=== PATIENT | female | born 1965 | race Caucasian/White ===

== ENCOUNTER → 2017-12-24 00:40 | Outpatient (CLI) | payer OTHER, SELFPAY ==
[2017-12-24 11:03] LABS: Anion Gap 9.5 mmol/L (3-11); BUN 16 mg/dL (7-18); CO2 25.5 mmol/L (21.0-32.0); CREATININE 0.81 mg/dL (0.55-1.02); Calcium 8.1 mg/dL (8.5-10.1); Chloride 107 mmol/L (98-107); Cholesterol 174 mg/dL (50-200); Glucose 102 mg/dL (70-100); HDL Cholesterol 36 mg/dL (40-60); LDL CHOLESTEROL 116 mg/dL (<100); Potassium 4.6 mmol/L (3.5-5.1); Sodium 142 mmol/L (136-145); Triglyceride 167 mg/dL (30-150)
== END ==
PROVIDERS: PCP Family Medicine; Visit Provider Family Medicine
DX: Z00.00 Encounter for general adult medical examination without abnormal findings (principal); Z13.228 Encounter for screening for other metabolic disorders; Z13.220 Encounter for screening for lipoid disorders
CPT/HCPCS: 36415; 80048; 80061; 83721

== ENCOUNTER 2019-08-06 10:53 | Outpatient (REF) | payer OTHER, SELFPAY ==
[2019-08-06 12:53] LABS: Hemoglobin A1C 6.2 % (3.8-5.6)
== END 2019-08-06 11:13 ==
LOC: NCHCN 10:53
PROVIDERS: PCP Family Medicine; Visit Provider Family Medicine
DX: R73.03 Prediabetes (principal)
CPT/HCPCS: 83036

== ENCOUNTER 2019-11-29 17:28 | Outpatient (REF) | payer OTHER, SELFPAY ==
[2019-11-29 17:21] LABS: Bilirubin Negative (Negative); Blood Large (Negative); Clarity Sl Cloudy (Clear); Glucose Negative (Negative); Ketones Negative (Negative); Leukocyte Esterase Negative (Negative); Nitrite Negative (Negative); Urobilinogen 0.2 EU/dL (Up TO 0.2)
[2019-11-29 17:33] LABS: Bacteria Negative HPF (Negative); C & S Indicated? No; Casts Negative LPF (Negative); Crystals Negative HPF (Negative); Epithelial Cells Negative HPF (Negative); Mucus Negative (Negative); Other Cells Negative (Negative); RBC >50 HPF (0-2)
== END 2019-11-29 17:48 ==
LOC: LBO 17:28
PROVIDERS: PCP Family Medicine; Visit Provider Family Medicine
DX: R31.9 Hematuria, unspecified (principal)
CPT/HCPCS: 81003; 81015

== ENCOUNTER 2019-12-03 13:53 | Outpatient (REF) | payer OTHER, SELFPAY ==
[2019-12-03 17:39] LABS: HCT 44.6 % (36.0-46.0); HGB 14.8 g/dL (12.0-15.5); Mean Corp. HGB Concentration 33.2 g/dL (32.0-36.0); Mean Corpuscular Hemoglobin 29.4 pg (27.0-33.0); Mean Corpuscular Volume 88.7 fL (80-95); Mean Platelet Volume 12.7 fL (8.0-11.0); Platelet Count 181 x1000/uL (130-400); RBC 5.03 m/cumm (4.00-5.20); White Blood Cell Count 6.08 k/cumm (4.4-10.8)
[2019-12-03 17:44] LABS: Bilirubin Negative (Negative); Blood Negative (Negative); Clarity Clear (Clear); Glucose Negative (Negative); Ketones Negative (Negative); Leukocyte Esterase Negative (Negative); Nitrite Negative (Negative); Specific Gravity 1.025 (1.005-1.025); Urobilinogen 0.2 EU/dL (Up TO 0.2); pH 5.5 (5-8)
[2019-12-03 18:16] LABS: ALT 64 U/L (14-59); AST 38 U/L (15-37); Albumin 3.9 g/dL (3.4-5.0); Alkaline Phosphatase 143 U/L (46-116); Anion Gap 9.2 mmol/L (3-11); BUN 14 mg/dL (7-18); Bilirubin, Total 0.7 mg/dL (0.2-1.0); CO2 25.8 mmol/L (21.0-32.0); CREATININE 0.93 mg/dL (0.55-1.02); Calcium 8.4 mg/dL (8.5-10.1); Chloride 105 mmol/L (98-107); Glucose 110 mg/dL (74-106); Potassium 4.7 mmol/L (3.5-5.1); Sodium 140 mmol/L (136-145); TSH (W/Ref FT4) 2.67 uIU/mL (0.36-3.74)
== END 2019-12-03 14:13 ==
LOC: NCHCN 13:53
PROVIDERS: PCP Family Medicine; Visit Provider Family Medicine
DX: R31.9 Hematuria, unspecified (principal); R94.6 Abnormal results of thyroid function studies
CPT/HCPCS: 80053; 85027; 81003; 84443

== ENCOUNTER 2019-12-07 07:52 | Outpatient (CLI) | payer OTHER, SELFPAY ==
--- NOTE | 2019-12-07 09:49 | DI.US_ITS ---
EXAM: US RENAL CLINICAL HISTORY: HEMATURIA, R31.9 TECHNIQUE: Ultrasound performed using standard protocol. COMPARISON: No exams were available for comparison FINDINGS: Kidneys are normal in size and shape. There is no evidence of a renal mass or hydronephrosis. There are a couple of echogenic foci seen in each kidney, these may represent renal calcifications bu t the findings are not confirmatory. No evidence of obstruction. Ureteral jets are noted bilaterall y in the urinary bladder. Urinary bladder is unremarkable in appearance with pre and postvoid urinary bladder volume measuremen ts 149 cc and 0 cc respectively. IMPRESSION: No evidence of urinary tract obstruction. Possible bilateral renal calculi. In the presence of emilia turia, additional evaluation with CT urogram may be considered. DATA REPOSITORY:
== END 2019-12-07 08:12 ==
PROVIDERS: PCP Family Medicine; Visit Provider Family Medicine
DX: R31.9 Hematuria, unspecified (principal)
CPT/HCPCS: 76770

== ENCOUNTER 2019-12-24 12:28 | Outpatient (REF) | payer OTHER, SELFPAY ==
--- NOTE | 2019-12-24 11:50 | PAPNONF_PTH ---
PATIENT: Nupur Mcallister LOC: LOAN U#:[id number] AGE/SX: 54/F ROOM: RE12/24/[address]: Katia Madison DNP : 1965 BED: DIS: 12/24/2019 SPEC #: [id number] RECD: 12/24/19 16:24 STATUS: EDUARD REAdia #: [id number] MARIVEL: 12/24/19 11:[address]: Katia Madison DEPT: [facility] Cytology RECD BY: Ira Farnsworth ENTERED: 12/24/19 16:24 SP TYPE: MARIA VICTORIA GOMEZ DR: Beckie Acosta Tissues: 1 - BODY FLUID CYTO(SPUTUM/URINE)[facility] Procedures: BODY FLUID CYTO(URINE/SPUTUM) Comments: [id number] (TOTAL VOLUME = 60 ml's) (30 ml's URINE & 30 ml's CYTOLYT ADDED IN 2 CONTAINERS)
== END 2019-12-24 12:48 ==
LOC: LBN 12:28
PROVIDERS: PCP Family Medicine; Visit Provider Nurse Practitioner Gerontology
DX: R31.0 Gross hematuria (principal)
CPT/HCPCS: 88104

== ENCOUNTER 2020-01-04 02:23 | Outpatient (CLI) | payer OTHER, SELFPAY ==
--- NOTE | 2020-01-04 | DI.MAMMO_ITS ---
EXAM: MG MAMMO SCREENING CLINICAL HISTORY: SCREENING, [facility],Z00.00 TECHNIQUE: Bilateral full field digital CC and MLO mammographic images were obtained with 3D tomosyn thesis and utilizing computer aided detection (CAD). COMPARISON: Available for comparison. FINDINGS: Masses/Architectural Distortion: None seen. Microcalcifications: No suspicious pleomorphic-type are seen. Skin Thickening/Nipple Retraction: None. IMPRESSION: 1. No significant interval change with no specific features of malignancy noted. 2. Unless there is more urgent need, screening mammography is recommended, as per [employer] guidelines. BI-RADS Category 1 - Negative Breast Density - Category A - Almost entirely fatty A negative radiographic report should not delay biopsy if a dominant or clinically suspicious mass is present. Up to ten percent of cancers are not identified on mammography. A negative report may reinforce clinical impression. Adenosis and dense breasts may obscure an underlying neoplasm. False positive reports average 6 to 10%. Patient will receive a letter notifying them of these results.
== END 2020-01-04 02:43 ==
PROVIDERS: PCP Family Medicine; Visit Provider Family Medicine
DX: Z12.31 Encounter for screening mammogram for malignant neoplasm of breast (principal); Z00.00 Encounter for general adult medical examination without abnormal findings
CPT/HCPCS: 77063; 77067

== ENCOUNTER 2020-02-05 10:30 | Outpatient (REF) | payer OTHER, SELFPAY ==
[2020-02-05 19:17] LABS: ALT 59 U/L (14-59); AST 32 U/L (15-37); Albumin 3.7 g/dL (3.4-5.0); Alkaline Phosphatase 158 U/L (46-116); Bilirubin, Direct 0.08 mg/dL (0.00-0.20); Bilirubin, Total 0.4 mg/dL (0.2-1.0); Glucose 111 mg/dL (74-106); Total Protein 6.8 g/dL (6.4-8.2)
[2020-02-05 19:30] LABS: Hemoglobin A1C 5.7 % (<5.7)
[2020-02-05 19:37] LABS: Iron 51 ug/dL (50-170); Total Iron Binding Capacity 332 ug/dL (250-450); Transferrin Sat 15 % (15-50)
[2020-02-05 19:52] LABS: Ferritin 126 ng/mL (8-252)
[2020-02-07 10:05] LABS: Hepatitis A Antibody IgM Negative (Negative); Hepatitis B Core Antibody Negative (Negative); Hepatitis B surface Ag Negative (Negative); Hepatitis C Ab w Rflx HCV PCR Negative (Negative)
== END 2020-02-05 10:50 ==
LOC: NCHCN 10:30
PROVIDERS: PCP Family Medicine; Visit Provider Family Medicine
DX: R73.03 Prediabetes (principal); R79.89 Other specified abnormal findings of blood chemistry
CPT/HCPCS: 80076; 82947; 86704; 86709; 86803; 87340; 82728; 83036; 83540; 83550; 84443

== ENCOUNTER 2020-08-11 14:22 | Outpatient (REF) | payer OTHER, SELFPAY ==
[2020-08-11 18:58] LABS: Bilirubin Negative (Negative); Blood Negative (Negative); Clarity Clear (Clear); Glucose Negative (Negative); Ketones Negative (Negative); Leukocyte Esterase Negative (Negative); Nitrite Negative (Negative); Specific Gravity 1.025 (1.005-1.025); Urobilinogen 0.2 EU/dL (Up TO 0.2); pH 5.5 (5-8)
[2020-08-11 19:11] LABS: Hemoglobin A1C 6.3 % (<5.7)
[2020-08-11 19:28] LABS: ALT 53 U/L (14-59); AST 27 U/L (15-37); Albumin 3.7 g/dL (3.4-5.0); Alkaline Phosphatase 175 U/L (46-116); Anion Gap 9.5 mmol/L (3-11); BUN 18 mg/dL (7-18); Bilirubin, Total 0.4 mg/dL (0.2-1.0); CO2 25.5 mmol/L (21.0-32.0); CREATININE 0.9 mg/dL (0.55-1.02); Calcium 8.1 mg/dL (8.5-10.1); Chloride 105 mmol/L (98-107); Glucose 109 mg/dL (74-106); Potassium 4.4 mmol/L (3.5-5.1); Sodium 140 mmol/L (136-145); Total Protein 6.7 g/dL (6.4-8.2)
[2020-08-13 10:30] LABS: HIV-1/2 Ag & Ab Screen Negative (Negative)
[2020-08-15 17:19] LABS: Magnesium 1.9 mg/dL (1.8-2.4)
[2020-08-17 17:35] LABS: Vitamin D 25 Total 11.8 ng/mL (30-100)
== END 2020-08-11 14:23 | disposition home or self-care (01) ==
LOC: NCHCN 14:22
PROVIDERS: PCP Family Medicine; Visit Provider Family Medicine
DX: Z00.00 Encounter for general adult medical examination without abnormal findings (principal); R73.03 Prediabetes; R74.8 Abnormal levels of other serum enzymes; R31.9 Hematuria, unspecified; Z11.4 Encounter for screening for human immunodeficiency virus [HIV]
CPT/HCPCS: 80053; 82306; 87389; 81003; 83036; 83735

== ENCOUNTER 2020-10-14 16:02 | Outpatient (REF) | payer OTHER, SELFPAY ==
[2020-10-14 16:50] LABS: Folate 10.1 ng/mL (8.6-20.0); Vitamin B12 461 pg/mL (193-986)
[2020-10-15 12:12] LABS: Albumin 62.6 % (55.8-66.1); Total Protein 6.6 g/dL (6.3-8.2)
== END 2020-10-14 16:03 | disposition home or self-care (01) ==
LOC: NCHCN 16:02
PROVIDERS: PCP Family Medicine; Visit Provider Family Medicine
DX: R20.2 Paresthesia of skin (principal)
CPT/HCPCS: 82607; 82746; 84165

== ENCOUNTER 2020-10-27 18:39 | Outpatient (REF) | payer OTHER, SELFPAY ==
[2020-10-27 18:59] LABS: Calcium 8.4 mg/dL (8.5-10.1)
[2020-10-27 19:16] LABS: PHOSPHORUS 3.8 mg/dL (2.6-4.7)
[2020-10-29 10:52] LABS: Parathyroid Hormone,Intact 78 pg/mL (19-88)
== END 2020-10-27 18:40 | disposition home or self-care (01) ==
LOC: NCHCN 18:39
PROVIDERS: PCP Family Medicine; Visit Provider Family Medicine
DX: E58 Dietary calcium deficiency (principal); R73.03 Prediabetes
CPT/HCPCS: 82310; 82330; 83970; 84100

== ENCOUNTER 2021-01-27 14:36 | Outpatient (REF) | payer OTHER, SELFPAY ==
[2021-01-27 19:20] LABS: Calcium 8.4 mg/dL (8.5-10.1); TSH (W/Ref FT4) 3.16 uIU/mL (0.36-3.74)
[2021-01-28 11:03] LABS: Glucose 99 mg/dL (74-106)
[2021-01-29 01:30] LABS: Vitamin D 25 Total 34.4 ng/mL (30-100)
== END 2021-01-27 14:37 | disposition home or self-care (01) ==
LOC: NCHCN 14:36
PROVIDERS: PCP Family Medicine; Visit Provider Family Medicine
DX: R73.03 Prediabetes (principal); E83.51 Hypocalcemia; E55.9 Vitamin D deficiency, unspecified
CPT/HCPCS: 82306; 82947; 82310; 84443

== ENCOUNTER 2021-02-03 02:07 | Outpatient (CLI) | payer OTHER, SELFPAY ==
[2021-02-03 08:29] LABS: Hemoglobin A1C 5.8 % (<5.7)
[2021-02-03 15:59] LABS: Ionized Calcium 1.05 mmol/L (1.12-1.32)
[2021-02-04 10:14] LABS: Parathyroid Hormone,Intact 51 pg/mL (19-88)
== END 2021-02-03 02:08 | disposition home or self-care (01) ==
LOC: LBO 02:07
PROVIDERS: PCP Family Medicine; Visit Provider Family Medicine
DX: E83.51 Hypocalcemia (principal); R20.9 Unspecified disturbances of skin sensation; R73.03 Prediabetes
CPT/HCPCS: 36415; 82330; 83036; 83970

== ENCOUNTER 2021-07-14 02:38 | Outpatient (CLI) | payer OTHER, SELFPAY ==
--- NOTE | 2021-07-14 17:30 | DI.DEXA_ITS ---
Exam(s) XR DEXA BONE DENSITY W/WO REJI EXAM: XR DEXA BONE DENSITY W/WO REJI CLINICAL HISTORY: MENOPAUSE, Z78.0; VITAMIN D DEFICIENCY WITH HYPOCALCEMIA, HYPERPTH, E55.9 TECHNIQUE: [employer] Horizon C densitometer COMPARISON: No exams were available for comparison FINDINGS: Lateral view of the thoracic and lumbar spine shows no evidence of compression fractures. Bone mineral density measurements of the lumbar spine correspond to a total T-score of 0.0, in the n ormal range. Bone mineral density measurements of the left hip correspond to a total T-score of 0.3. The femoral neck T-score is -1.0, at the lower range of normal. . The left forearm bone mineral density measurements correspond to a T-score of the distal 3rd of -0 p oint, in the normal range.. IMPRESSION: Normal bone mineral density.
== END 2021-07-14 02:58 ==
PROVIDERS: PCP Family Medicine; Visit Provider Internal Medicine Endocrinology, Diabetes & Metabolism
DX: Z13.820 Encounter for screening for osteoporosis (principal); Z78.0 Asymptomatic menopausal state; E55.9 Vitamin D deficiency, unspecified
CPT/HCPCS: 77080

== ENCOUNTER 2021-08-04 00:45 | Outpatient (CLI) | payer OTHER, SELFPAY ==
--- NOTE | 2021-08-04 07:38 | DI.US_ITS ---
APPROVED REPORT EXAM: Comprehensive 2D, Doppler, and color-flow Echocardiogram Patient Location: Out-Patient Angle Furnaceman: Yael Winchester RDCS (AE) Indications: Dyspnea on exertion Other Information Study Quality: Adequate Conclusion Normal left ventricular wall thickness and chamber size. Estimated ejection fraction is 60%. Wall m otion is normal Normal right ventricular size and systolic function Both atria are normal in size The aortic valve is trileaflet and mildly sclerotic without stenosis or regurgitation No additional structural or hemodynamically significant valvular disease Estimated right ventricular systolic pressure is normal at 18 mmHg Wall motion Left Ventricle The left ventricle is normal size. The left ventricular systolic function is normal. The left ventric ular ejection fraction is within the normal range. There is normal left ventricular wall thickness. T here is normal LV segmental wall motion. There is no ventricular septal defect visualized. LVEF is 60 %. Right Ventricle The right ventricle is normal size. The right ventricular systolic function is normal. The RVSP is 17 .7 mmHg. Atria The left atrium size is normal. The right atrium size is normal. The interatrial septum is intact wit h no evidence for an atrial septal defect. Aortic Valve The aortic valve is mildly sclerotic Aortic valve is trileaflet. There is no aortic valvular stenosis . No aortic regurgitation is present. Mitral Valve The mitral valve is normal in structure. No evidence of mitral valve stenosis. Trace mitral regurgita tion. Tricuspid Valve The tricuspid valve is normal in structure. There is no tricuspid valve stenosis. Trace tricuspid reg urgitation. Pulmonic Valve The pulmonary valve is normal in structure. There is no pulmonic valvular stenosis. Trace pulmonic re gurgitation. Great Vessels The aortic root is normal in size. The ascending aorta is normal in size. Aortic arch is not well vis ualized. IVC is normal in size and collapses >50% with inspiration. Pericardium There is no pericardial effusion. 2D Dimensions IVSD d PLAX 0.98 cm F: 0.6-1.0 LV Vol A2C d MOD 111.8 mL LVPW d PLAX 0.98 cm F: 0.6 - 1.0 LV Vol A4C d MOD 127.2 mL LVID d PLAX 4.98 cm F: 3.8 - 5.2 LA vol/ BSA A2C s A-L 31.6 mL/m2 LVDs 3.20 cm F: 2.2 - 3.5 LA vol/ BSA A4C s A-L 34.9 mL/m2 Ao Root d 2.80 cm F: 2.7 - 3.3 LA Vol/ BSA Biplane s A-L 35.5 mL/m2 RA Area A4C 13.38 cm2 LA Area A4C s MOD 22.21 cm2 RA Vol/ BSA A4C s A-L 16.1 mL/m2 LA Area A2C s MOD 19.77 cm2 Ao Asc Diam d 3.03 cm F: 2.3 - 3.1 LV EF A4C MOD 59.6 % LV EF Teichholz 64.5 % LV EF A2C MOD 59.4 % LVEF (Pacheco's) 58.26 % F: 54 - 74 LV EF Biplane MOD 58.3 % LV Volume 88.45 mL F: 46 - 106 SV 69.92 mL LV Volume Index 41.91 mL/m2 F: 29 - 61 SV Index 33.14 mL/m2 LV Vol Biplane MOD 120.0 mL FS 35.30 % M-Mode TAPSE 2.20 cm (M/F) >1.7 LV Diastology MV E' medial 0.093 (>0.07 m/s) E/A Ratio 2.0 LV E/e MED 10.85 (<14) MV E Vmax 1.01 (0.4-1.3 m/s) MV E' lateral 0.134 (>0.1 m/s) MV A Vmax 0.50 (0.4-1.3 m/s) LV E/e LAT 7.55 (<14) MV E/A Ratio 1.93 MV E/E' medial 10.89 MV E/E' lateral 7.55 Aortic Valve LVOT Area 4.14 cm2 AoV Area Vmax 3.11 cm2 LVOT Vmax 1.03 m/s AoV Area/ BSA (Vmax) 1.47 cm2/m2 LVOT Mean Gustavo. 0.69 m/s JAYESH Mean Gustavo. 2.97 cm2 LVOT Peak Grad 4.2 mmHg JAYESH Mean Gustavo. Index 1.41 cm2/m2 LVOT Mean Grad 2.2 mmHg LVOT VTI 0.216 m LVOT Diam s 2.25 cm AoV Vmax 1.37 m/s Velocity Ratio 0.75 AoV Mean Gustavo. 0.97 m/s AoV Peak Grad 7.5 mmHg LVOT SV 89.27 mL AoV Mean Grad 4.2 mmHg AoV VTI 0.260 m AoV Area VTI 3.43 cm2 AoV Area/ BSA (VTI) 1.63 cm/m2 Mitral Valve MV DT 176 (160-240 msec) MV PHT 51 msec MV Area PHT 4.30 cm2 MV VTI 0.230 m MV Area VTI 3.89 (4.0-6.0 cm2) Pulmonary Valve PV Vmax 1.15 (0.5-1.5 m/s) RVOT Peak Gr. 1.81 mmHg PV Peak Grad 5.3 mmHg RVOT Mean Gr. 0.95 mmHg PV Mean Grad 2.8 mmHg RVOT VTI 0.175 m PV VTI 0.251 m RVOT Vmax 0.67 m/s Tricuspid Valve TR Peak Grad 14.7 mmHg TR Vmax 1.92 m/s RA Pressure 3.00 mmHg RVSP (TR) 17.7 mmHg
== END 2021-08-04 01:05 ==
PROVIDERS: PCP Family Medicine; Visit Provider Family Medicine
DX: R06.09 Other forms of dyspnea (principal)
CPT/HCPCS: 93306

== ENCOUNTER 2021-08-04 01:26 | Outpatient (CLI) | payer OTHER, SELFPAY ==
[2021-08-04 07:59] LABS: Hemoglobin A1C 5.7 % (<5.7)
[2021-08-04 08:49] LABS: ALT 33 U/L (14-59); AST 17 U/L (15-37); Albumin 3.6 g/dL (3.4-5.0); Alkaline Phosphatase 153 U/L (46-116); Anion Gap 8.5 mmol/L (3-11); BUN 21 mg/dL (7-18); Bilirubin, Total 0.4 mg/dL (0.2-1.0); CO2 26.5 mmol/L (21.0-32.0); Calcium 8.4 mg/dL (8.5-10.1); Calculated LDL 111 mg/dL (<100); Chloride 106 mmol/L (98-107); Cholesterol 188 mg/dL (<200); Estimated GFR 57.35 (mL/min/1.73m2); Glucose 94 mg/dL (74-106); HDL Cholesterol 36 mg/dL (40-60); Potassium 4.3 mmol/L (3.5-5.1); Sodium 141 mmol/L (136-145); TSH 3.45 uIU/mL (0.36-3.74); Total Protein 6.6 g/dL (6.4-8.2); Triglyceride 208 mg/dL (<150); Vitamin B12 387 pg/mL (193-986)
[2021-08-04 09:06] LABS: FREE T4 0.86 ng/dL (0.76-1.46)
[2021-08-06 00:48] LABS: Vitamin D 25 Total 47.1 ng/mL (30-100)
[2021-08-06 14:30] LABS: C-Peptide 4.7 ng/mL (1.1 - 4.4)
== END 2021-08-04 01:27 | disposition home or self-care (01) ==
LOC: LBO 01:26
PROVIDERS: PCP Family Medicine; Visit Provider Internal Medicine Endocrinology, Diabetes & Metabolism
DX: E66.01 Morbid (severe) obesity due to excess calories (principal); Z68.41 Body mass index [BMI] 40.0-44.9, adult; R73.03 Prediabetes; E55.9 Vitamin D deficiency, unspecified
CPT/HCPCS: 36415; 80053; 80061; 82306; 82533; 82397; 82607; 83036; 84439; 84443; 84681

== ENCOUNTER 2021-08-14 13:40 | Outpatient (CLI) | payer OTHER, SELFPAY ==
[2021-08-17 10:28] LABS: Parathyroid Hormone,Intact 76 pg/mL (19-88)
== END 2021-08-14 13:41 | disposition home or self-care (01) ==
LOC: LBO 13:40
PROVIDERS: PCP Family Medicine; Visit Provider Internal Medicine Endocrinology, Diabetes & Metabolism
DX: E66.01 Morbid (severe) obesity due to excess calories (principal); R73.03 Prediabetes; E55.9 Vitamin D deficiency, unspecified
CPT/HCPCS: 83970

== ENCOUNTER 2021-09-02 07:55 | Outpatient (REF) | payer OTHER, SELFPAY ==
[2021-09-02 15:49] LABS: HCT 45.8 % (36.0-46.0); HGB 14.4 g/dL (11.2-15.7); MCH 28.5 pg (27.0-33.0); MCHC 31.4 % (32.0-36.0); MCV 90.5 fL (80-95); MPV 12.1 fL (8.0-11.0); Platelet Count 191 10^3/uL (130-400); RBC 5.06 10^6/uL (3.93-5.22); RDW 13.1 % (11.7-14.6); RDW-SD 43.1 fL; WBC 7.52 10^3/uL (4.4-10.8)
== END 2021-09-02 07:56 | disposition home or self-care (01) ==
LOC: NCHCN 07:55
PROVIDERS: PCP Family Medicine; Visit Provider Family Medicine
DX: R06.09 Other forms of dyspnea (principal)
CPT/HCPCS: 85027

== ENCOUNTER 2021-10-27 02:15 | Outpatient (CLI) | payer OTHER, SELFPAY ==
[2021-10-27] MEDS: Albuterol HFA 18 GM 200 PUFF INH IH (08:50)
[2021-10-27] MEDS: Inhaler, Assist Device 1 EACH MC (08:51)
--- NOTE | 2021-10-27 11:24 | W.PFT ---
Date of service: 10/27/21 Time of Service: 08:03 Pulmonary Function Test Result Requesting Provider Beckie Acosta Indications: WRIGHT Interpretation Spirometry: There is no airflow limitation. There is no significant bronchodilator response. Lung Volumes: Normal lung volumes Diffusion Capacity: Normal diffusion Airway Pressure: Normal airways resistance. Impression Normal pulmonary function testing Clinical Correlation therefore is recommended.
== END 2021-10-27 02:16 | disposition home or self-care (01) ==
LOC: RT 02:15
PROVIDERS: PCP Family Medicine; Visit Provider Family Medicine
DX: R06.09 Other forms of dyspnea (principal)
CPT/HCPCS: 94060; 94726; 94729

== ENCOUNTER 2021-12-28 15:26 | Outpatient (REF) | payer OTHER, SELFPAY ==
--- NOTE | 2021-12-28 15:00 | PAPFT_PTH ---
PATIENT: Nupur Mcallister LOC: LOAN U#:[id number] AGE/SX: 56/F ROOM: RE12/28/[address]: Beckie Acosta : 1965 BED: DIS: 12/28/2021 SPEC #: [id number] RECD: 12/29/21 13:13 STATUS: EDUARD REAdia #: [id number] MARIVEL: 12/28/21 15:[address]: Beckie Acosta DEPT: [facility] Cytology RECD BY: Ira Farnsworth Tissues: 1 - CX/ENDOCX FOR PAP SMEARS Procedures: PAP THIN PREP/[facility] Screening HPV DNA PROBE Comments: [id number]
== END 2021-12-28 15:27 | disposition home or self-care (01) ==
LOC: LBN 15:26
PROVIDERS: PCP Family Medicine; Visit Provider Family Medicine
DX: Z12.4 Encounter for screening for malignant neoplasm of cervix (principal); Z11.51 Encounter for screening for human papillomavirus (HPV)
CPT/HCPCS: 88142; 87624

== ENCOUNTER 2022-05-12 16:15 | Emergency (ER) | payer OTHER, SELFPAY ==
--- NOTE | 2022-05-12 16:15 | RT.EKG_ITS ---
APPROVED REPORT Exam: Resting ECG Reason for Exam: Chest pain Patient Location: E HR:57 bpm ECG Measurements Heart Rate 57 AXIS HI 178 P 4 QRSd 98 QRS 92 QT 360 T 3 QTc 351 Conclusion Sinus bradycardia...rate< 60
[2022-05-12 16:19] VITALS: BP 148/80; PULSE 77; RESP 18; TEMP 37; O2SAT 98
--- NOTE | 2022-05-12 16:30 | DI.RAD_ITS ---
Exam(s) XR CHEST 2V PA LATERAL EXAM: XR CHEST 2V PA LATERAL CLINICAL HISTORY: L CP. TECHNIQUE: 2D digital imaging was performed. COMPARISON: No exams were available for comparison FINDINGS: 2 views: Heart size is normal. The mediastinum is not widened. Lungs are clear. No infiltrates nor pleural effusions. IMPRESSION: No acute pulmonary findings. DATA REPOSITORY: RADIATION DOSE DELIVERED:
--- NOTE | 2022-05-12 16:45 | ED.GENADUL_ITS ---
Discharge Plan Disposition Patient Disposition: Home Condition: Improving Discharge Details Clinical Impression: Atypical chest pain Primary Care Provider: Beckie Acosta ED Provider: Freeman Blevins Home Meds and New Rx's Prescriptions: Continued ibuprofen 200 mg tablet 400 mg PO Q8H PRN omeprazole [Prilosec] 20 MG capsule,delayed release(DR/EC) 20 mg PO DAILY calcium carbonate 500 mg calcium (1,250 mg) tablet 500 mg PO DAILY cyanocobalamin (vitamin B-12) 500 mcg tablet 500 mcg PO DAILY cholecalciferol (vitamin D3) 125 mcg (5,000 unit) capsule 125 mcg PO DAILY metformin 750 mg tablet extended release 24 hr 1,500 mg PO DAILY levothyroxine 25 mcg tablet 25 mcg PO DAILY gabapentin 100 mg capsule 100 mg PO BID metformin 750 mg tablet extended release 24 hr 1,500 mg PO DAILY topiramate 50 mg tablet 50 mg PO BID acetaminophen [Tylenol Extra Strength] 500 MG tablet 1,000 mg PO DAILY PRN PRN gabapentin [Neurontin] 100 mg capsule 100 mg PO 2XD Label Comments: Take 1 capsule by mouth every morning and 3 capsules in the PM Rx Instructions: 100 in the morning. 200 in the evening. Discharge Instructions Instructions: Chest Pain (ED) Additional Instructions: Please call diagnostic imaging at [phone] for an appointment time for your exercise treadmill test. Home to rest. Please continue ibuprofen 400 to 600 mg 3 times a day as needed for discomfort. Return to the ER for any acute concern. Medical Decision Making 56-year-old female reports left anterior reproducible chest wall pain for weeks time. Seems to be worse over the past days and she will note some mild increase in an exertional intolerance. States its mostly worsened by movement and with turning of her head. She arrives to the ER well-appearing, she has reproducible pain on exam. Differential diagnosis includes pectoralis minor strain, chest myalgia, must exclude ACS and PE. Patient had IV access established, screening labs, EKG and chest x-ray obtained. Patient's laboratories are reassuring with a negative troponin and D-dimer. Chest x-ray without acute disease. She is somewhat improved with ketorolac. Given that the discomfort has been persistent for 1 week's time, do not feel further work-up is indicated at this time, but will order outpatient stress testing for her with follow-up in primary care clinic. She is stable and appropriate for discharge to home. HPI General Mode of arrival: ambulatory . Date/Time Provider Initiated Documentation: 05/12/22 16:26 . Limitations to Documentation: no limitations . Information obtained by: patient . History of Present Illness 56 year old F presents to the emergency department with the chief complaint of Left-sided chest pain for weeks, described as moderate, Quality is described as dull and constant, and is localized to the chest. Patient reports no radiation. Patient started experiencing this day(s) and it has been intermittent. No relieving factors improve symptom(s), Movement worsens symptoms . Patient notes denies cough, fever/chills, rash and shortness of breath. Patient did receive the following treatments prior to arrival, none Related Data Home Medications Medication Instructions Recorded Confirmed omeprazole 20 mg capsule,delayed 20 mg PO DAILY 11/14/12 05/12/22 release (Prilosec) acetaminophen 500 mg tablet 1,000 mg PO DAILY PRN PRN 01/29/13 05/12/22 (Tylenol Extra Strength) ibuprofen 200 mg tablet 400 mg PO Q8H PRN 05/30/18 05/12/22 calcium carbonate 500 mg calcium 500 mg PO DAILY 08/31/21 05/12/22 (1,250 mg) tablet cholecalciferol (vitamin D3) 125 125 mcg PO DAILY 08/31/21 05/12/22 mcg (5,000 unit) capsule cyanocobalamin (vitamin B-12) 500 500 mcg PO DAILY 08/31/21 05/12/22 mcg tablet gabapentin 100 mg capsule 100 mg PO BID 08/31/21 levothyroxine 25 mcg tablet 25 mcg PO DAILY 08/31/21 05/12/22 metformin 750 mg tablet,extended 1,500 mg PO DAILY 08/31/21 release 24 hr metformin 750 mg tablet,extended 1,500 mg PO DAILY 08/31/21 05/12/22 release 24 hr topiramate 50 mg tablet 50 mg PO BID 08/31/21 gabapentin 100 mg capsule 100 mg PO 2XD 05/12/22 05/12/22 (Neurontin) Allergies Allergy/AdvReac Type Severity Reaction Status Date / Time No Known Allergies Allergy Unverified 05/12/22 16:46 General Stated Complaint: Chest Pain BRENNA: 3 Review of Systems Narrative: 7 systems reviewed and otherwise negative. PFSH All Active Problems (Updated 05/12/22 @ 18:02 by Freeman Blevins MD) Atypical chest pain (Acute) Peripheral neuropathy (Acute) Hypocalcemia (Acute) Vitamin A deficiency (Acute) Dyspnea (Acute) Sensorineural hearing loss of both ears (Acute) Mixed stress and urge urinary incontinence (Acute) Hematuria (Acute) Auditory processing disorder (Acute 06/18/13) Tinnitus (Acute 06/18/13) Tubular adenoma of colon (Acute 04/05/16) Medical History (Updated 05/12/22 @ 18:02 by Freeman Blevins MD) Back pain Dyslipidemia elevated alk phos Gastroesophageal reflux disease Hemorrhoids Hiatal hernia Hoarse Hx of adenomatous colonic polyps Left sided sciatica Meralgia paraesthetica Morbid obesity Prediabetes Sinusitis Surgical History Colonoscopy - IV Sedation (04/05/16) kenny EGD - IV Sedation kenny left carpal tunnel surgery r hand tendon graft Tonsillectomy tubal ligation Family History Sister Angina pectoris Brother Diabetes Grandfather Personal history of malignant neoplasm colon; +60yr @ dx great uncle Personal history of malignant neoplasm colon great uncle Personal history of malignant neoplasm colon great uncle Personal history of malignant neoplasm colon Social History Smoking/Tobacco Use Status: Never Smoking risk assessment performed?: Yes Alcohol Intake: current Alcohol Intake frequency: a few times a week Drug use: Never Substance use type: does not use Household members: spouse and family Housing: house Number of Children: 3 current occupation: RN What type of physical activity do you participate in: walking Duration: 15-30 minutes/day Frequency: 3-4 times per week Do you feel safe at home: Yes Do you feel safe in your relationship?: Yes Exam Narrative Exam Narrative: GEN: awake, alert, oriented 3. Pleasant, well groomed, interactive. HEAD: Normocephalic, atraumatic ENT: Mucous membranes moist, oropharynx unremarkable, External ear exam unremarkable EYES: PERRL, EOMI NECK: Full ROM, no JEFF, no menigismus CHEST/RESP: Left pectoral muscle tender to palpation, clear to auscultation bilateral, no wheeze/rhonchi/rales CARDIOVASCULAR: RRR, no murmur, rub samantha. 2+ Rad pulse bilateral ABDOMEN: Soft, nontender, no mass. +Bowel sounds EXT: Full ROM, no edema, no rash Neuro: Grossly normal neurologic exam, conversant, interactive. Psych: Speech fluent, thoughts congruent, affect normal Course Vital Signs Vital signs: Vital Signs Temperature 37.0 C 05/12/22 16:19 Pulse 77 05/12/22 16:19 Respiratory Rate 18 05/12/22 16:19 Blood Pressure 148/80 H 05/12/22 16:19 Pulse Oximetry 98 05/12/22 16:19 Temperature 37.0 C 05/12/22 16:19 Temperature Source Tympanic 05/12/22 16:19 Pulse 77 05/12/22 16:19 Respiratory Rate 18 05/12/22 16:19 Respiratory Effort 05/12/22 16:24 Respiratory Depth Normal 05/12/22 16:24 Respiratory Pattern Normal 05/12/22 16:24 Blood Pressure 148/80 H 05/12/22 16:19 Blood Pressure Position Supine 05/12/22 16:19 Pulse Oximetry 98 05/12/22 16:19 Oxygen Delivery Method Room Air 05/12/22 16:19 Oxygen Flow Rate 0 05/12/22 16:19 Pain Level 3 05/12/22 16:19
[2022-05-12] MEDS: Ketorolac 15 MG/ML VIAL IVP (16:51)
[2022-05-12 16:55] LABS: Abs Immature Grans 0.02 10^3/uL (0.0-0.06); Absolute Basophil Count 0.05 10^3/uL (0.0-0.2); Absolute Eosinophil Count 0.17 10^3/uL (0.0-0.7); Absolute Lymphocyte Count 2.61 10^3/uL (1.2-3.4); Absolute Monocyte Count 0.51 10^3/uL (0.1-0.8); Basophils % 0.6; Eosinophils % 2.1; HCT 45.7 % (36.0-46.0); HGB 14.9 g/dL (11.2-15.7); Immature Grans % 0.3; Lymphocytes % 32.8; MCH 29.3 pg (27.0-33.0); MCHC 32.6 % (32.0-36.0); MCV 90 fL (80-95); MPV 11.9 fL (8.0-11.0); Monocytes % 6.4; Neutrophils % 57.8; Platelet Count 197 10^3/uL (130-400); RBC 5.08 10^6/uL (3.93-5.22); RDW 12.8 % (11.7-14.6); RDW-SD 42.5 fL; WBC 7.96 10^3/uL (4.4-10.8)
[2022-05-12 17:13] LABS: ALT 41 U/L (14-59); AST 23 U/L (15-37); Alkaline Phosphatase 164 U/L (46-116); Anion Gap 6.4 mmol/L (3-11); BUN 20 mg/dL (7-18); Bilirubin, Total 0.4 mg/dL (0.2-1.0); CO2 29.6 mmol/L (21.0-32.0); Calcium 8.7 mg/dL (8.5-10.1); Chloride 103 mmol/L (98-107); Estimated GFR 65.71 (mL/min/1.73m2); Glucose 96 mg/dL (74-106); Magnesium 1.9 mg/dL (1.8-2.4); Potassium 3.7 mmol/L (3.5-5.1); Sodium 139 mmol/L (136-145); Total Protein 7.6 g/dL (6.4-8.2); Troponin I < 50 ng/L (<or=60)
[2022-05-12 17:25] LABS: D-Dimer 272 ng/mlFEU (<500)
--- NOTE | 2022-05-12 17:25 | DI.VRAD_ITS ---
PROCEDURE INFORMATION: Exam: XR Chest Exam date and time: 05/12/2022 5:04 PM Age: 56 years old Clinical indication: Pain; Left-sided TECHNIQUE: Imaging protocol: Radiologic exam of the chest. Views: 2 views. COMPARISON: No relevant prior studies available. FINDINGS: Lungs: Unremarkable. No consolidation. Pleural spaces: Unremarkable. No pleural effusion. No pneumothorax. Heart/Mediastinum: Unremarkable. No cardiomegaly. Bones/joints: Thoracic spine degenerative change and dextroscoliosis. IMPRESSION: No acute findings. Dictated and Authenticated by: Abraham Brower MD. Ordering:AMANDA Millard MD
== END 2022-05-12 18:16 | disposition home or self-care (01) ==
PROVIDERS: Emergency Provider Emergency Medicine; PCP Family Medicine
DX: R07.89 Other chest pain (principal)
CPT/HCPCS: 80053; 93005; 96374; 99284; 71046; 83735; 84484; 85025; 85379; 93010; 99285; J1885

== ENCOUNTER 2022-05-25 00:28 | Outpatient (CLI) | payer OTHER, SELFPAY ==
--- NOTE | 2022-05-25 15:00 | ETT_ITS ---
APPROVED REPORT Exam: Exercise Treadmill Patient Location: Out-Patient Room/Bed: Stress Nurse: Audrey Randall RN Ordering Provider:MONISHA PARMAR, Contact Number: [phone] BMI: 40.84 Baseline Rhythm: Sinus Rhythm Indications: Chest pain Medical History Medical History: Hyperlipidemia, prediabetes, peripheral neuropathy, gerd, morbid obesity, hx of asth ma Cardiac Medications: Omeprazole Allergies: NKA Cardiac Risk Factors: Hyperlipidemia, prediabetes, hx of asthma, obesity, family hx Previous Cardiac Procedures: None Pretest Chest Pain Characteristics: Chest pain 3/10 L side w/ certain movements Exercise History: Indeterminate Physical Disabilities: None Lung Sounds: Clear to auscultation Heart Sounds: Regular Stress Test Details Test: Exercise stress testing was performed using a Latrell protocol. Rest Stress HR Resting HR Supine: 64 bpm Max Heart Rate (APMHR): 163 bpm Resting HR Standin bpm Target HR (85% APMHR): 139 bpm Max HR Achieved: 169 bpm % of APMHR: 104 Recovery HR: 95 bpm HR response to stress: Normal HR response to stress BP Resting BP Supine: 126/80 mmHg Resting BP Standin/78 mmHg Max BP: 196/84 mmHg Recovery BP: 138/72 mmHg BP response to stress: Normal blood pressure response to stress. ECG Resting ECG: Sinus Rhythm Ectopy: None Stress ECG: Sinus Tachycardia ST Change: No significant ST segment changes noted Arrhythmia: Rare PVC, couplet Recovery ECG: Sinus Rhythm Recovery ST Change: No significant ST segment changes noted Recovery Arrhythmia: Rare PVC Clinical Reason for Termination: Fatigue Stress Symptoms: General Fatigue Exercise duration: 6 min23 sec Highest Stage Reached: Stage 3: 3.4 mph at 14% grade. Exercise capacity: 7.65 METs Angina Score: None Avila Treadmill Score: 5.3 Rate Pressure Product: [id number] Stress ECG Conclusion 1. The resting electrocardiogram showed left axis deviation, late transition 2. Patient exercised on the Latrell protocol completed a workload of 7.65 METS, limited by fatigue 3. Normal heart rate and blood pressure response to exercise. Patient achieved greater than 100% of predicted heart rate for age 4. There was no electrocardiographic evidence of myocardial ischemia 5. There were no significant dysrhythmias Avila Treadmill Score is 5.3 which is Low risk. Stress Test Summary STAGE Time (mins) Speed (mph) Grade (%) HR BP SpO2 SYMPTOMS METS Supine 64 126/80 Standing 73 128/78 97% 1 3 1.7 10 125 140/64 94% 4.5 2 6 2.5 12 156 192/96 93% 7 3 9 3.4 14 167 10 1 min recovery 128 196/84 93% 3 min recovery 93 156/68 97% 6 min recovery 95 138/72 96% Pt felt momentary chest pain in left shoulder that quickly subsided with repositioning.
== END 2022-05-25 00:48 ==
PROVIDERS: PCP Family Medicine; Visit Provider Emergency Medicine
DX: R07.9 Chest pain, unspecified (principal)
CPT/HCPCS: 93017

== ENCOUNTER 2022-05-29 02:52 | Emergency (ER) | payer OTHER, SELFPAY ==
[2022-05-29] VITALS (32 sets, daily range): BP systolic 83–157; BP diastolic 38–75; PULSE 67–81; RESP 14–27; O2SAT 91–99
--- NOTE | 2022-05-29 02:45 | RT.EKG_ITS ---
APPROVED REPORT Exam: Resting ECG Reason for Exam: chest pain Patient Location: E HR:73 bpm ECG Measurements Heart Rate 73 AXIS LA 174 P 59 QRSd 93 QRS -21 QT 345 T 44 QTc 381 Conclusion Sinus rhythm...normal P axis, V-rate 60- 99 Physician: no stemi, stable
--- NOTE | 2022-05-29 03:00 | DI.CT_ITS ---
Exam(s) CT THORAX CTA EXAM: CT THORAX CTA CLINICAL HISTORY: left CP, radiates to back, r/o dissection. TECHNIQUE: Imaging Protocol: Axial CT angiography was performed with multi-slice acquisition and mu lti-planar and/or 3D reconstructions. CONTRAST MATERIAL: Intravenous: Omnipaque 350 Contrast volume:125 ml COMPARISON: No exams were available for comparison FINDINGS: CHEST: Pulmonary Arteries: No evidence of filling defect to suggest pulmonary emboli. Tracheobronchial tree: Patent where visualized. Mediastinum and Prabha: No dominant adenopathy or fluid collection. Pulmonary parenchyma: No consolidation or dominant measurable mass. No architectural distortion. Pleura: No effusion or pneumothorax. Heart: The heart is not dilated. No coronary artery calcifications are seen. Aorta: Thoracic aorta non-dilated. Bones: Degenerative changes. ABDOMEN: Liver: Mildly enlarged. Mild fatty infiltration.. No measurable mass. Portal, Superior Mesenteric, and Splenic Veins: Unremarkable. Gallbladder and Biliary Tract: No radiodense calculus or dilation. Pancreas: Normal density, no abnormal calcifications or inflammatory process. Spleen: Normal. Adrenals: No masses seen. Kidneys: Mild scarring left kidney.. No radiodense stones or obstructive uropathy. No masses seen. Abdominal Aorta: Abdominal portion non-dilated. No significant atherosclerotic changes. Bowel: No obstruction or bowel wall thickening. Appendix is unremarkable. Peritoneal Cavity: No ascites, collection or mesenteric inflammatory response. Lymph Nodes: Within normal limits. Bones: Degenerative changes in the spine. Soft Tissues: Fatty containing umbilical hernia. PELVIS: Bladder: Symmetric distention, no gross wall thickening. Reproductive Organs: Unremarkable as visualized. Lymph Nodes: Within normal limits. Bones: Within normal limits. IMPRESSION: 1. No evidence of pulmonary embolism. No acute abnormality in the chest. 2. No acute abdominal or pelvic process. RADIATION DOSE DELIVERED: 1,269.6mGy.cm Total DLP 1,269.6mGy.cm Total DLP DATA REPOSITORY: All CT scans at this facility are submitted to the National Radiology Data Registry (NRDR) Dose Index Registry (DIR) with the [employer] ([employer]). RADIATION OPTIMIZATION: All CT scans at this facility use at least one of these dose optimization te chniques: automated exposure control; mA and/or kV adjustment per patient size (includes targeted exa ms where dose is matched to clinical indication); or iterative reconstruction.
--- NOTE | 2022-05-29 03:13 | ED.GENADUL_ITS ---
Discharge Plan Disposition Patient Disposition: Home Condition: Good Discharge Details Chief Complaint: Chest Pain Clinical Impression: Left-sided chest wall pain Primary Care Provider: Beckie Acosta ED Provider: Ramses Pariis Home Meds and New Rx's Prescriptions: No Action ibuprofen 200 mg tablet 400 mg PO Q8H PRN omeprazole [Prilosec] 20 MG capsule,delayed release(DR/EC) 20 mg PO DAILY calcium carbonate 500 mg calcium (1,250 mg) tablet 500 mg PO DAILY cyanocobalamin (vitamin B-12) 500 mcg tablet 500 mcg PO DAILY cholecalciferol (vitamin D3) 125 mcg (5,000 unit) capsule 125 mcg PO DAILY metformin 750 mg tablet extended release 24 hr 1,500 mg PO DAILY levothyroxine 25 mcg tablet 25 mcg PO DAILY gabapentin 100 mg capsule 100 mg PO BID metformin 750 mg tablet extended release 24 hr 1,500 mg PO DAILY topiramate 50 mg tablet 50 mg PO BID acetaminophen [Tylenol Extra Strength] 500 MG tablet 1,000 mg PO DAILY PRN PRN gabapentin [Neurontin] 100 mg capsule 100 mg PO 2XD Label Comments: Take 1 capsule by mouth every morning and 3 capsules in the PM Rx Instructions: 100 in the morning. 200 in the evening. Discharge Instructions Instructions: Chest Wall Pain (ED) Additional Instructions: At this time your CTA shows no evidence of pneumonia, aneurysm, pulmonary embolism, or dissection. Your EKG and blood work shows no evidence of a heart attack. Please use Tylenol and Motrin as needed for pain. Please stretch the area in your left chest regularly and use a heating pad as needed to help with any muscle spasm. If you notice any worsening of your symptoms, or any new symptoms such as vomiting, diarrhea, fever, chills, shortness of breath, chest pain, numbness, weakness, or fainting , please return immediately to the emergency department for reevaluation. Please follow up with your primary care provider as soon as possible for reassessment and reevaluation. As always, it was a pleasure participating in your medical care today. Referrals: Beckie Acosta MD [Primary Care Provider] - Medical Decision Making 56-year-old female with a past medical history of hypothyroidism, diabetes mellitus, reflux, who presents today for evaluation of left-sided chest pain. Patient was recently in here about 2 weeks ago, she had negative D-dimer, chest x-ray and cardiac work-up at that time. She states that symptoms are similar but a little bit more mild then. About 3 days ago she had a negative exercise stress test performed here. She states that her left-sided chest achiness is continued however today at around 4 PM it became notably worse. She describes it as a sharp sensation in her left chest extending to her left scapula and left shoulder. It appears to be worsened with position and movement of her shoulder and chest. There does not appear to be an exertional component. She denies any dyspnea. She denies any fever chills vomiting or diarrhea. No other complaints at this time. No other modifying factors. Exam demonstrates well-appearing female, EKG is unremarkable. Exam demonstrates left-sided reproducible chest wall tenderness which is a component of her pain. It appears to be located. Near the insertion point for the pectoralis major muscle. Patient has had a notably thorough cardiac work-up, however we will repeat the troponin and EKG here. Last time her D-dimer was negative but with her change in symptomatology I do feel that potential CT imaging is indicated for further evaluation to rule out dissection or PE. We will treat the patient's pain, monitor closely and reassess. 6:18 AM Patient is feeling much better. She is sleeping comfortably in bed. CT scan results have returned, no acute process. Laboratory work-up stable, EKG benign, troponin normal, patient feels well and feels comfortable to go home. Symptoms clinically inconsistent with dissection, PE, or ACS. Suspect a musculoskeletal component, potentially a mildly subluxed rib or muscle strain. Will recommend continued close follow-up with her primary care provider. Discussed red flags for which to return. I have extensively reviewed the treatment plan and discharge instructions with the patient. I have addressed all patient concerns at this time. The patient was made aware of what symptoms to monitor for that would warrant a return to the emergency department. Discussed the plan with the patient, they demonstrate verbal understanding and agreement with our assessment and plan at this time. The documentation in this chart was dictated using [employer] dictation software. Please excuse any dictation errors. FINDINGS: Pulmonary arteries: Main pulmonary artery normal in caliber. No pulmonary artery filling defects. Aorta: Thoracic aorta normal in caliber. No aortic dissection. Lungs: No parenchymal consolidation. Pleural spaces: No pneumothorax or pleural effusion. Heart: Heart normal in size. No coronary artery calcifications or pericardial effusion. Heart RV/LV ratio: RV/LV ratio is 0.92. Lymph nodes: No adenopathy. Diaphragm: Small hiatal hernia. Bones/joints: The spine demonstrates mild degenerative changes at multiple levels. Soft tissues: Unremarkable. Other findings: There is diffuse decrease in hepatic parenchymal density, consis tent with mild fatty infiltration. IMPRESSION: 1. No pulmonary artery embolism demonstrated. 2. No aortic aneurysm or dissection. 3. Small hiatal hernia. Thank you for allowing us to participate in the care of your patient. Dictated and Authenticated by: Kannan Lopez DO 05/29/2022 6:06 AM Eastern Time ([place] & [place]) HPI General Date/Time Provider Initiated Documentation: 05/29/22 03:01 . HPI Narrative: 56-year-old female with a past medical history of hypothyroidism, diabetes mellitus, reflux, who presents today for evaluation of left-sided chest pain. Patient was recently in here about 2 weeks ago, she had negative D-dimer, chest x-ray and cardiac work-up at that time. She states that symptoms are similar but a little bit more mild then. About 3 days ago she had a negative exercise stress test performed here. She states that her left-sided chest achiness is continued however today at around 4 PM it became notably worse. She describes it as a sharp sensation in her left chest extending to her left scapula and left shoulder. It appears to be worsened with position and movement of her shoulder and chest. There does not appear to be an exertional component. She denies any dyspnea. She denies any fever chills vomiting or diarrhea. No other complaints at this time. No other modifying factors. Related Data Home Medications Medication Instructions Recorded Confirmed omeprazole 20 mg capsule,delayed 20 mg PO DAILY 11/14/12 05/12/22 release (Prilosec) acetaminophen 500 mg tablet 1,000 mg PO DAILY PRN PRN 01/29/13 05/12/22 (Tylenol Extra Strength) ibuprofen 200 mg tablet 400 mg PO Q8H PRN 05/30/18 05/12/22 calcium carbonate 500 mg calcium 500 mg PO DAILY 08/31/21 05/12/22 (1,250 mg) tablet cholecalciferol (vitamin D3) 125 125 mcg PO DAILY 08/31/21 05/12/22 mcg (5,000 unit) capsule cyanocobalamin (vitamin B-12) 500 500 mcg PO DAILY 08/31/21 05/12/22 mcg tablet gabapentin 100 mg capsule 100 mg PO BID 08/31/21 levothyroxine 25 mcg tablet 25 mcg PO DAILY 08/31/21 05/12/22 metformin 750 mg tablet,extended 1,500 mg PO DAILY 08/31/21 release 24 hr metformin 750 mg tablet,extended 1,500 mg PO DAILY 08/31/21 05/12/22 release 24 hr topiramate 50 mg tablet 50 mg PO BID 08/31/21 gabapentin 100 mg capsule 100 mg PO 2XD 05/12/22 05/12/22 (Neurontin) Allergies Allergy/AdvReac Type Severity Reaction Status Date / Time No Known Allergies Allergy Unverified 05/12/22 16:46 General Stated Complaint: Chest Pain BRENNA: 2 Review of Systems All systems reviewed & are unremarkable except as noted in HPI and below PFSH All Active Problems (Updated 05/29/22 @ 06:20 by Ramses Parisi DO) Atypical chest pain (Acute) Left-sided chest wall pain (Acute) Peripheral neuropathy (Acute) Hypocalcemia (Acute) Vitamin A deficiency (Acute) Dyspnea (Acute) Sensorineural hearing loss of both ears (Acute) Mixed stress and urge urinary incontinence (Acute) Hematuria (Acute) Auditory processing disorder (Acute 06/18/13) Tinnitus (Acute 06/18/13) Tubular adenoma of colon (Acute 04/05/16) Medical History (Updated 05/29/22 @ 06:20 by Ramses Parisi DO) Back pain Dyslipidemia elevated alk phos Gastroesophageal reflux disease Hemorrhoids Hiatal hernia Hoarse Hx of adenomatous colonic polyps Left sided sciatica Meralgia paraesthetica Morbid obesity Prediabetes Sinusitis Surgical History Colonoscopy - IV Sedation (04/05/16) kenny EGD - IV Sedation kenny left carpal tunnel surgery r hand tendon graft Tonsillectomy tubal ligation Family History Sister Angina pectoris Brother Diabetes Grandfather Personal history of malignant neoplasm colon; +60yr @ dx great uncle Personal history of malignant neoplasm colon great uncle Personal history of malignant neoplasm colon great uncle Personal history of malignant neoplasm colon Social History Smoking/Tobacco Use Status: Current-Occasional Smoking risk assessment performed?: Yes Alcohol Intake: current Alcohol Intake frequency: a few times a week Drug use: Never Substance use type: does not use Household members: spouse and family Housing: house Number of Children: 3 current occupation: RN What type of physical activity do you participate in: walking Duration: 15-30 minutes/day Frequency: 3-4 times per week Do you feel safe at home: Yes Do you feel safe in your relationship?: Yes Exam Narrative Exam Narrative: 1.Const: Well-nourished, Well-developed, appearing stated age 2.Eyes: PERRL, no conjunctival injection, and symmetrical lids. 3.ENT: Atraumatic external nose and ears. Moist MM. Neck: Symmetric, trachea midline, No thyromegaly. 4.CVS: +S1/S2, No murmurs or gallops. Peripheral pulses 2+ and equal in all extremities. Brisk capillary refill in all extremities. Patient does demonstrate reproducible left chest wall tenderness which she states is a component of her pain. It appears to be near the midclavicular line for the insertion for the pectoralis major muscle. No rash or deformity otherwise. 5.RESP: Unlabored respiratory effort. Clear to auscultation bilaterally. No wheezes rales or rhonchi 6.GI: Soft, Nontender/Nondistended, No hepatosplenomegaly. No guarding or rebound. 7.MSK: Normocephalic/Atraumatic, Extremities w/o deformity or ttp No cyanosis or clubbing, Normal movement of all extremities 8.Skin: Warm, Dry. No rashes or lesions. 9.Neuro: vehicle and equipment cleaner II-XII grossly intact. Sensation grossly intact, no focal neurologic deficits. 10.Psych: (AAO) x3. Appropriate mood and affect Course Vital Signs Vital signs: Vital Signs Pulse 76 05/29/22 02:57 Respiratory Rate 20 05/29/22 02:57 Blood Pressure 137/73 05/29/22 02:57 Pulse Oximetry 99 05/29/22 02:57 Temperature Source Temporal Artery Scan 05/29/22 02:57 Pulse 76 05/29/22 02:57 Respiratory Rate 20 05/29/22 02:57 Respiratory Effort Non-Labored 05/29/22 03:06 Blood Pressure 137/73 05/29/22 02:57 Pulse Oximetry 99 05/29/22 02:57 Oxygen Delivery Method Room Air 05/29/22 02:57 Oxygen Flow Rate 0 05/29/22 02:57 Pain Level 9 05/29/22 02:57 Comment 05/29/22 02:57
[2022-05-29 03:20] LABS: Abs Immature Grans 0.02 10^3/uL (0.0-0.06); Absolute Basophil Count 0.04 10^3/uL (0.0-0.2); Absolute Eosinophil Count 0.23 10^3/uL (0.0-0.7); Absolute Lymphocyte Count 1.92 10^3/uL (1.2-3.4); Absolute Monocyte Count 0.72 10^3/uL (0.1-0.8); Absolute Neutrophil Count 5.79 10^3/uL (1.2-6.7); Basophils % 0.5; Eosinophils % 2.6; HCT 43.1 % (36.0-46.0); HGB 14.3 g/dL (11.2-15.7); Immature Grans % 0.2; MCH 29.9 pg (27.0-33.0); MCHC 33.2 % (32.0-36.0); MCV 90 fL (80-95); MPV 11.3 fL (8.0-11.0); Monocytes % 8.3; Neutrophils % 66.4; Platelet Count 170 10^3/uL (130-400); RBC 4.78 10^6/uL (3.93-5.22); RDW 12.7 % (11.7-14.6); WBC 8.72 10^3/uL (4.4-10.8)
[2022-05-29] MEDS: ACETAMINOPHEN 1,000 MG/100 ML BTL 400 MG IVPB (03:27)
[2022-05-29] MEDS: MORPHine 4 MG/ML SYR IVP (03:29)
[2022-05-29] MEDS: Normal Saline 500 ML IV (03:30)
[2022-05-29] MEDS: Lidocaine 5% Patch 1 PATCH TP (03:32)
[2022-05-29 03:42] LABS: ALT 39 U/L (14-59); AST 23 U/L (15-37); Albumin 3.9 g/dL (3.4-5.0); Alkaline Phosphatase 174 U/L (46-116); Anion Gap 3.7 mmol/L (3-11); BUN 21 mg/dL (7-18); Bilirubin, Total 0.5 mg/dL (0.2-1.0); CO2 31.3 mmol/L (21.0-32.0); CREATININE 1.1 mg/dL (0.55-1.02); Calcium 8.5 mg/dL (8.5-10.1); Chloride 105 mmol/L (98-107); Estimated GFR 58.61 (mL/min/1.73m2); Glucose 110 mg/dL (74-106); Lipase 110 U/L (73-393); Potassium 4.3 mmol/L (3.5-5.1); Sodium 140 mmol/L (136-145); Total Protein 7.3 g/dL (6.4-8.2); Troponin I < 50 ng/L (<or=60)
[2022-05-29] MEDS: Omnipaque 350 MG/ML 100 ML BTL IJ ×2 (04:13→04:14)
[2022-05-29] MEDS: Normal Saline Flush 10 ML SYR IVP (04:14)
--- NOTE | 2022-05-29 06:06 | DI.VRAD_ITS ---
PROCEDURE INFORMATION: Exam: CTA Chest With Contrast Exam date and time: 05/29/2022 4:02 AM Age: 56 years old Clinical indication: Pain; Left-sided TECHNIQUE: Imaging protocol: Computed tomographic angiography of the chest with contrast. 3D rendering (Not supervised by radiologist): MIP and/or 3D reconstructed images were created by the technologist. Contrast volume: 125 ml; Contrast route: IV; COMPARISON: CR XR CHEST 2V PA LATERAL 05/12/2022 5:04 PM FINDINGS: Pulmonary arteries: Main pulmonary artery normal in caliber. No pulmonary artery filling defects. Aorta: Thoracic aorta normal in caliber. No aortic dissection. Lungs: No parenchymal consolidation. Pleural spaces: No pneumothorax or pleural effusion. Heart: Heart normal in size. No coronary artery calcifications or pericardial effusion. Heart RV/LV ratio: RV/LV ratio is 0.92. Lymph nodes: No adenopathy. Diaphragm: Small hiatal hernia. Bones/joints: The spine demonstrates mild degenerative changes at multiple levels. Soft tissues: Unremarkable. Other findings: There is diffuse decrease in hepatic parenchymal density, consistent with mild fatty infiltration. IMPRESSION: 1. No pulmonary artery embolism demonstrated. 2. No aortic aneurysm or dissection. 3. Small hiatal hernia. Dictated and Authenticated by: Kannan Lopez MD. Ordering:GWENDOLYN Pearce MD
== END 2022-05-29 06:29 | disposition home or self-care (01) ==
PROVIDERS: Emergency Provider Student in an Organized Health Care Education/Training Program; PCP Family Medicine
DX: R07.89 Other chest pain (principal); E11.9 Type 2 diabetes mellitus without complications; E03.9 Hypothyroidism, unspecified; Z79.84 Long term (current) use of oral hypoglycemic drugs
CPT/HCPCS: 71275; 80053; 83690; 93005; 96361; 96365; 96375; 99285; 84484; 85025; 93010; J0131; J2270; J3490

== ENCOUNTER 2022-09-01 01:36 | Outpatient (CLI) | payer OTHER, SELFPAY ==
--- NOTE | 2022-09-01 | DI.MAMMO_ITS ---
Exam(s) MAMMO SCREENING EXAM: MAMMO SCREENING CLINICAL HISTORY: SCREENING, Z12.39 TECHNIQUE: Mammograms were interpreted according to the usual protocol including computer analysis w [employer] CAD system, tomosynthesis and C-view imaging. COMPARISON: 2013 through 2019 FINDINGS: The breasts are composed of mainly fatty density , Breast Density category A. No suspicious masses or suspicious microcalcifications are seen. No skin thickening or abnormal axillary lymph nodes are seen. There has been no significant change from prior exams. IMPRESSION: BI-RADS Category 1, Negative mammogram Yearly screening mammography is recommended. Breast Density - Category A, fatty density. A negative radiographic report should not delay biopsy if a dominant or clinically suspicious mass is present. Up to ten percent of cancers are not identified on mammography. A negative report may reinforce clinical impression. Adenosis and dense breasts may obscure an underlying neoplasm. False positive reports average 6 to 10%. Patient will receive a letter notifying them of these results.
== END 2022-09-01 01:56 ==
LOC: DI 01:37
PROVIDERS: PCP Family Medicine; Visit Provider Family Medicine
DX: Z12.31 Encounter for screening mammogram for malignant neoplasm of breast (principal)
CPT/HCPCS: 77063; 77067

== ENCOUNTER 2022-09-24 16:38 | Outpatient (CLI) | payer OTHER, SELFPAY ==
[2022-09-24 17:50] LABS: Hemoglobin A1C 5.6 % (<5.7)
[2022-09-24 18:02] LABS: TSH (W/Ref FT4) 2.05 uIU/mL (0.36-3.74)
== END 2022-09-24 16:39 | disposition home or self-care (01) ==
LOC: LBO 16:39
PROVIDERS: PCP Family Medicine; Visit Provider Internal Medicine Endocrinology, Diabetes & Metabolism
DX: R73.03 Prediabetes (principal); E03.8 Other specified hypothyroidism
CPT/HCPCS: 36415; 83036; 84443

== ENCOUNTER 2023-03-11 19:26 | Outpatient (REF) | payer OTHER, SELFPAY ==
[2023-03-11 18:45] LABS: Anion Gap 7.4 mmol/L (3-11); BUN 17 mg/dL (7-18); CO2 29.6 mmol/L (21.0-32.0); Chloride 108 mmol/L (98-107); Glucose 112 mg/dL (74-106); Potassium 4.2 mmol/L (3.5-5.1); Sodium 145 mmol/L (136-145)
[2023-03-11 19:04] LABS: Hemoglobin A1C 5.8 % (<5.7)
[2023-03-11 19:12] LABS: Vitamin D 25 Total 59.6 ng/mL (30-100)
== END 2023-03-11 19:27 | disposition home or self-care (01) ==
LOC: NCHCN 19:26
PROVIDERS: PCP Family Medicine; Visit Provider Family Medicine
DX: R13.10 Dysphagia, unspecified; E55.9 Vitamin D deficiency, unspecified; R73.03 Prediabetes
CPT/HCPCS: 80048; 82306; 83036; 83519

== ENCOUNTER 2023-07-15 22:14 | Outpatient (REF) | payer BC, SELFPAY ==
[2023-07-15 16:18] LABS: TSH (W/Ref FT4) 3.16 uIU/mL (0.36-3.74)
[2023-07-15 16:29] LABS: Hemoglobin A1C 5.6 % (<5.7)
== END 2023-07-15 22:15 | disposition home or self-care (01) ==
LOC: NCHCN 22:14
PROVIDERS: PCP Family Medicine; Visit Provider Family Medicine
DX: R73.03 Prediabetes (principal); E03.8 Other specified hypothyroidism
CPT/HCPCS: 83036; 83519; 84443

== ENCOUNTER → 2023-07-29 00:55 | Outpatient (CLI) | payer BC, SELFPAY ==
--- NOTE | 2023-07-29 | DI.RAD_ITS ---
Exam(s) XR SHOULDER LT COMPLETE 2+V EXAM: XR SHOULDER LT COMPLETE 2+V CLINICAL HISTORY: PAIN LEFT SHOULDER JOINT M25.512. TECHNIQUE: 2D digital imaging was performed of the left shoulder. Five images were obtained. AP, G rashey, Y-view and axillary views were obtained. COMPARISON: No exams were available for comparison FINDINGS: BONES: No acute fracture is present. No bony destructive lesion is seen. JOINTS: No dislocation present. There are mild degenerative changes seen at the acromioclavicular breanna nt. The glenohumeral joint is well maintained. SOFT TISSUE: Normal. IMPRESSION: Degenerative changes at the acromioclavicular joint. DATA REPOSITORY: RADIATION DOSE DELIVERED:
== END ==
PROVIDERS: PCP Family Medicine; Visit Provider Family Medicine
DX: M25.512 Pain in left shoulder (principal)
CPT/HCPCS: 73030

== ENCOUNTER → 2023-08-19 00:57 | Outpatient (CLI) | payer BC, SELFPAY ==
--- NOTE | 2023-08-19 | DI.DEXA_ITS ---
Exam(s) XR DEXA BONE DENSITY W/WO REJI EXAM: XR DEXA BONE DENSITY W/WO REJI CLINICAL HISTORY: MENOPAUSE Z78.0 VIT D DEFICIENCY E55.9 HYPOTHYROIDISM E03.8 TECHNIQUE: [employer] C densitometer analysis of left hip, lumbar spine and left forearm. Lat eral survey image of the thoracic and lumbar spine. COMPARISON: CR XR DEXA BONE DENSITY W/WO REJI from 07/14/2021 FINDINGS: Lateral view of the thoracic and lumbar spine shows no evidence of compression fractures. Bone mineral density measurements of the lumbar spine correspond to a total T-score of 0.2, in the n ormal range. Not significantly changed from prior. Bone mineral density measurements of the left hip correspond to a total T-score of 0.6. 3 percent i ncrease from 2021. The femoral neck T-score is -1.3, in the osteopenic range.. Theleft forearm bone mineral density measurements correspond to a T-score of the distal 3rd of -0.5, in the normal range. 3.4 percent decrease from 2021. IMPRESSION: Normal bone mineral density of the spine and forearm. Mild osteopenia of the hip.
== END ==
PROVIDERS: PCP Family Medicine; Visit Provider Internal Medicine Endocrinology, Diabetes & Metabolism
DX: M85.88 Other specified disorders of bone density and structure, other site (principal); E55.9 Vitamin D deficiency, unspecified; E03.8 Other specified hypothyroidism; Z78.0 Asymptomatic menopausal state
CPT/HCPCS: 77080

== ENCOUNTER → 2023-09-23 04:19 | Outpatient (CLI) | payer BC, SELFPAY ==
--- NOTE | 2023-09-23 07:30 | DI.MRI_ITS ---
Exam(s) MR UPPER JOINT LT WO EXAM: MR UPPER JOINT LT WO CLINICAL HISTORY: L SHOULDER PAIN,TRAUMATIC TEAR LT ROTATOR CUFF,S46.012A TECHNIQUE: Multiplanar multisequence MRI of the shoulder was performed. COMPARISON: CR XR SHOULDER LT COMPLETE 2+V from 07/29/2023 FINDINGS: MARROW:There is no evidence of fracture, Hill-Sachs deformity, nor ominous osseous lesions. There is degenerative subarticular cysts on the posterior aspect of the humeral head-greater tuberosity region . GLENOHUMERAL JOINT: Minimal amount of increased joint fluid. There are no loose intra-articular bodi es evident. There are no degenerative subarticular cysts in the osseous glenoid. No osteophytes. T here is some thinning of the articular cartilage noted. No evidence of capsular tear. The inferior glenohumeral ligament is intact. ROTATOR CUFF MECHANISM: AC JOINT/ACROMIUM: There are moderate degenerative changes in the AC joint.. There is no evidence of os acromiale. Supraspinatus: There is tendinitis-tendinosis signal evident in the supraspinatus tendon.. There ashley ears to be a partial thickness tear at the conjoined level with the infraspinatus. There is no retra ction. There is some edema in the subacromial space. No muscle atrophy. Infraspinatus: There is partial-thickness tearing on the articular surface side of the insertional te ndon. No full-thickness tear. No atrophy. Teres Minor: Intact. No evidence of tear nor muscle atrophy. Subscapularis/anterior cuff: Some tendinosis signal also evident in the anterior cuff but no full-thi ckness tear. No muscle atrophy. BICEPS TENDON: Not displaced from the intertubercular groove. No evidence of tear. Mild fluid in the tendon sheath. No loose bodies in the tendon sheath. LABRUM: There is some motion artifact on the axial images making accurate evaluation of the labrum di fficult. However, there does not appear to be an obvious labral tear. No evidence of paralabral cys t. IMPRESSION: 1. There is tendinitis-tendinosis signal in the supraspinatus tendon with partial-thickness tearing i n this tendon as well as in the articular side of the infraspinatus. There is also tendinitis signal seen in the anterior cuff-subscapularis. There is no muscle atrophy. There is some edema/fluid in the subacromial space. Therefore possibly that there is a small full-thickness tear component here v ersus is partial-thickness tears with overlying bursitis. 2. No evidence of obvious biceps tendon nor labral tear. No evidence of paralabral cyst. 3. Small glenohumeral joint effusion. No loose intra-articular bodies evident. 4. There are moderate degenerative changes in the acromioclavicular joint DATA REPOSITORY:
== END ==
PROVIDERS: PCP Family Medicine; Visit Provider Student in an Organized Health Care Education/Training Program
DX: M75.111 Incomplete rotator cuff tear or rupture of right shoulder, not specified as traumatic (principal)
CPT/HCPCS: 73221

== ENCOUNTER 2024-05-30 03:28 | Outpatient (CLI) | payer BC, SELFPAY ==
--- NOTE | 2024-05-30 | DI.MAMMO_ITS ---
Exam(s) MAMMO SCREENING EXAM: MAMMO SCREENING CLINICAL HISTORY: Z12.31 Screening TECHNIQUE: Bilateral full field digital CC and MLO mammographic images were obtained with 3D tomosyn thesis and utilizing computer aided detection (CAD). COMPARISON: Available for comparison. FINDINGS: Masses/Architectural Distortion: None seen. Microcalcifications: No suspicious pleomorphic-type are seen. Skin Thickening/Nipple Retraction: None. IMPRESSION: 1. No significant interval change with no specific features of malignancy noted. 2. Unless there is more urgent need, screening mammography is recommended, as per [place] [employer] guidelines. BI-RADS Category 1 - Negative Breast Density - Category A - Almost entirely fatty Breast density category C or D implies that the patient has dense breast tissue. Dense breast tissue is very common and is not abnormal but dense breast tissue can make it harder to find cancer on a ma mmogram. Also, dense breast tissue may increase their breast cancer risk. This information about the result of the mammogram report was provided to the patient to raise their awareness. Use this report when you speak with the patient about their risks for breast cancer, which includes their family hist ory. At that time, you may recommend for more screening tests (Ultrasound or MRI) as they might be us eful based on their risk. A negative radiographic report should not delay biopsy if a dominant or clinically suspicious mass is present. Up to ten percent of cancers are not identified on mammography. A negative report may reinforce clinical impression. Adenosis and dense breasts may obscure an underlying neoplasm. False positive reports average 6 to 10%. Patient will receive a letter notifying them of these results.
== END 2024-05-30 03:48 ==
LOC: DI 03:28
PROVIDERS: PCP Family Medicine; Visit Provider Family Medicine
DX: Z12.31 Encounter for screening mammogram for malignant neoplasm of breast (principal); R92.313 Mammographic fatty tissue density, bilateral breasts
CPT/HCPCS: 77063; 77067

== ENCOUNTER 2024-08-10 16:24 | Outpatient (REF) | payer BC, SELFPAY ==
[2024-08-10 21:45] LABS: Hemoglobin A1C 5.3 % (<5.7)
[2024-08-10 22:08] LABS: ALT 33 U/L (14-59); AST 19 U/L (15-37); Albumin 3.8 g/dL (3.4-5.0); Alkaline Phosphatase 172 U/L (46-116); Anion Gap 14.5 mmol/L (3-11); BUN 14 mg/dL (7-18); Bilirubin, Total 0.4 mg/dL (0.2-1.0); CO2 21.5 mmol/L (21.0-32.0); Calcium 8.8 mg/dL (8.5-10.1); Chloride 110 mmol/L (98-107); Glucose 106 mg/dL (74-106); Sodium 146 mmol/L (136-145); TSH (W/Ref FT4) 0.88 uIU/mL (0.36-3.74); Total Protein 6.7 g/dL (6.4-8.2); Vitamin D 25 Total 87 ng/mL (30-100)
== END 2024-08-10 16:25 | disposition home or self-care (01) ==
LOC: NCHCN 16:24
PROVIDERS: PCP Family Medicine; Visit Provider Family Medicine
DX: E03.9 Hypothyroidism, unspecified (principal); R73.03 Prediabetes; E55.9 Vitamin D deficiency, unspecified
CPT/HCPCS: 80053; 82306; 83036; 84443

== ENCOUNTER 2024-10-18 03:11 | Outpatient (CLI) | payer BC, SELFPAY ==
[2024-10-18 09:55] LABS: Hemoglobin A1C 5.3 % (<5.7)
[2024-10-18 10:16] LABS: Vitamin D 25 Total 97 ng/mL (30-100)
== END 2024-10-18 03:12 | disposition home or self-care (01) ==
LOC: LBO 03:11
PROVIDERS: PCP Family Medicine; Visit Provider Internal Medicine Endocrinology, Diabetes & Metabolism
DX: E03.8 Other specified hypothyroidism (principal); R73.03 Prediabetes
CPT/HCPCS: 36415; 82306; 83036; 84443

== ENCOUNTER 2025-02-15 03:58 | Outpatient (CLI) | payer BC, SELFPAY ==
[2025-02-15 16:44] LABS: TSH (W/Ref FT4) 1.42 uIU/mL (0.36-3.74); Vitamin D 25 Total 64 ng/mL (30-100)
== END 2025-02-15 03:59 | disposition home or self-care (01) ==
LOC: LBO 03:58
PROVIDERS: PCP Family Medicine; Visit Provider Internal Medicine Endocrinology, Diabetes & Metabolism
DX: E55.9 Vitamin D deficiency, unspecified (principal); E03.8 Other specified hypothyroidism
CPT/HCPCS: 36415; 82306; 84443

== ENCOUNTER 2025-02-15 15:27 | Outpatient (REF) | payer BC, SELFPAY ==
--- NOTE | 2025-02-15 14:40 | ENDOMET_PTH ---
PATIENT: Nupur Mcallister LOC: [facility] U#:[id number] AGE/SX: 59/F ROOM: RE02/15/[address]: Gianna Hidalgo DO : 1965 BED: DIS: 02/15/2025 SPEC #: [id number] RECD: 02/15/25 15:39 STATUS: EDUARD REQ #: [id number] MARIVEL: 02/15/25 14:[address]: Gianna Hidalgo DEPT: Surgical Specimen RECD BY: Ira Farnsworth ENTERED: 02/15/25 15:40 SP TYPE: Endomet OTHR DR: Beckie Acosta Tissues: 1 - ENDOMETRIUM BX/AUDELIAETTE Procedures: GROSS AND MICRO LEVEL 4 Comments: [id number]
== END 2025-02-15 15:28 | disposition home or self-care (01) ==
LOC: LBN 15:27
PROVIDERS: PCP Family Medicine; Visit Provider Obstetrics & Gynecology
DX: N95.0 Postmenopausal bleeding (principal); N85.8 Other specified noninflammatory disorders of uterus
CPT/HCPCS: 88305

== ENCOUNTER 2025-03-01 13:32 | Outpatient (REF) | payer BC, SELFPAY ==
[2025-03-01 17:29] LABS: HCT 45.3 % (36.0-46.0); HGB 14.9 g/dL (11.2-15.7); MCH 29.4 pg (27.0-33.0); MCHC 32.9 % (32.0-36.0); MCV 89 fL (80-95); MPV 12.5 fL (8.0-11.0); Platelet Count 197 10^3/uL (130-400); RBC 5.07 10^6/uL (3.93-5.22); RDW 13.2 % (11.7-14.6); RDW-SD 43.2 fL; WBC 6.78 10^3/uL (4.4-10.8)
== END 2025-03-01 13:33 | disposition home or self-care (01) ==
LOC: NCHCN 13:32
PROVIDERS: PCP Family Medicine; Visit Provider Family Medicine
DX: R06.02 Shortness of breath (principal)
CPT/HCPCS: 85027